=== PATIENT | male | born 1945 | race Caucasian/White ===

== ENCOUNTER 2017-02-02 05:03 | Inpatient (IN) ==
[~2017-02-02 05:03] MED LIST: FAMOTIDINE 20 MG TABLET PO ONE; LORazepam 1 MG TABLET PO ONE
[2017-02-02] MEDS ORDERED: VANCOMYCIN 1,000 MG VIAL ONE (05:51)
[2017-02-02] MEDS ORDERED: ceFAZolin 1,000 MG VIAL ONE (05:52)
[2017-02-02] MEDS ORDERED: SODIUM CHLORIDE 0.9% 100 ML IV ONE (05:52)
[2017-02-02] MEDS ORDERED: LORazepam 1 MG TABLET ONE (05:52)
[2017-02-02] MEDS ORDERED: FAMOTIDINE 20 MG TABLET ONE (05:52)
[2017-02-02] MEDS ORDERED: VANCOMYCIN INJ 1,000 MG in SODIUM CHLORIDE 0.9% 250 ML IV ONE (06:00)
[2017-02-02] MEDS ORDERED: TRANEXAMIC ACID 1,000 MG/10 ML VIAL IV ONE (06:43)
--- NOTE | 2017-02-02 06:48 | History and Physical Update ---
History and Physical Update - History and Physical H&P was reviewed, the patient examined and there: are no changes in the patients condition since last H&P was completed.
[2017-02-02] MEDS ORDERED: MORPHINE 10 MG/10 ML VIAL ONE (06:49)
[2017-02-02] MEDS ORDERED: PROPOFOL 200 MG/20 ML VIAL IV ONE (06:59)
[2017-02-02] MEDS ORDERED: PHENYLEPHRINE 1 MG/10 ML SYRINGE IV ONE (06:59)
[2017-02-02] MEDS ORDERED: ONDANSETRON 4 MG/2 ML VIAL ONE (06:59)
[2017-02-02] MEDS ORDERED: LACTATED RINGERS 1,000 ML IV SCH (07:00)
[2017-02-02] MEDS ORDERED: BACITRACIN OINT 0.9 GM PACK TOP ONE (08:17)
[2017-02-02] MEDS ORDERED: MAGNESIUM HYDROXIDE SUSP 30 ML UDCUP PO PRN (08:49)
[2017-02-02] MEDS ORDERED: diphenhydrAMINE CAP 25 MG CAPSULE PO PRN (08:49)
[2017-02-02] MEDS ORDERED: ONDANSETRON 4 MG/2 ML VIAL IV PRN (08:49)
[2017-02-02] MEDS ORDERED: DEXTROSE 50% 25 GM/50 ML VIAL IV PRN (08:49)
[2017-02-02] MEDS ORDERED: oxyCODONE IR 5 MG TABLET PO PRN ×2 (08:49)
[2017-02-02] MEDS ORDERED: ZALEPLON 5 MG CAPSULE PO PRN (08:49)
[2017-02-02] MEDS ORDERED: GLUCAGON 1 MG VIAL IM PRN (08:49)
[2017-02-02] MEDS ORDERED: MORPHINE 2 MG/1 ML SYRINGE IV PRN ×2 (08:49)
[2017-02-02 08:56] LABS: Apearance,Urine CLEAR (Clear); Bilirubin,Urine Negative (Negative); Blood, Urine Negative (Negative); Glucose,Urine (UA) Negative (Negative); Ketones,Urine Negative (Negative); Mucus,Urine Occasional /LPF (Occasional); Nitrite,Urine Negative (Negative); Protein,Urine Negative; RBC,Urine 2 /HPF (0-4); Urine Color Yellow (Yellow); Urine Specific Gravity 1.015 (1.001-1.035); Urine Urobilinogen < 2.0 EU/DL (0.2-1.0); WBC,Urine 1 /HPF (0-6)
--- NOTE | 2017-02-02 08:57 | Operative Note ---
Date of procedure: 02/02/17 Procedure: DIAGNOSIS: Right hip primary osteoarthritis PROCEDURE: Right total hip arthroplasty (CPT#54862) SURGEON: Alphonso ANESTHESIA: Spinal PROCEDURE and FINDINGS: After adequate anesthesia was induced, the patient was placed in lateral decubitus position. Left lower extremities prepped and draped in usual sterile fashion. Posteriolateral approach to the hip was made. Skin, subcutaneous tissue and deep fascia was incised longitudinally. Gluteus brennon muscle belly was split in line with its fibers. Piriformis, external rotators and capsule were taken down as a single layer as an inverted L shaped capsulotomy. Hip was dislocated. Templated femoral neck cut was made. Acetabulum was prepared by sequentially reaming to 53 mm. A 54 mm Continuum acetabular shell was press-fit with excellent stability. 1 6.5 millimeter screw was placed with an excellent bite. 32 mm elevated Longevity liner was placed with a dome hole plug. Femur was prepared sequentially with the box osteotome, canal finder and sequential broaches to 14. Components were trialed. A size 14 Versys fiber metal tapered stem was press-fit. During implantation of the stem, a small fracture line developed at the posteriomedial aspect of the femoral neck. A 1.8 mm cable was placed at the subtrochanteric level. A 32-3.5 mm head was placed. The component was stable posteriorly and anteriorly. Capsule and external rotators were repaired to the greater trochanter with #5 Tycron. Deep fascia was closed with 0 Vicryl figure-of- eight suture. Subcutaneous tissue was closed deep with a 2-0 Vicryl runner and superficially with 3-0 interrupted buried sutures. Skin was closed with natan. Bacitracin and a sterile occlusive dressing was applied. Surgeon / Physician: Chapin Werner Jr. Discharge Plan - Discharge Medications No Action metFORMIN [Glucophage] 850 mg PO BID W/MEALS Vitamin B Complex 1 each PO DAILY Omeprazole 20 mg PO DAILY Atorvastatin [Lipitor] 10 mg PO DAILY Aspirin [Ecotrin] 81 mg PO DAILY Glipizide [Glipizide Xl] 5 mg PO DAILY Fenofibrate 160 mg PO DAILY Clopidogrel [Plavix] 75 mg PO DAILY Magnesium Oxide 400 mg PO DAILY Metoprolol Succinate 25 mg PO BID - Follow Up or Referral - Forms/Instructions
[2017-02-02] MEDS ORDERED: ACETAMINOPHEN 1,000 MG/100 ML VIAL IV ONE (09:11)
[2017-02-02] MEDS ORDERED: KETAMINE 500 MG/10 ML VIAL ONE (09:11)
[2017-02-02] MEDS ORDERED: MIDAZOLAM 2 MG/2 ML VIAL ONE (09:11)
--- NOTE | 2017-02-02 09:30 | XRay Report ---
Right hip x-ray one view Indication: Joint replacement Comparison: None Technique: Single frontal view of the right hip Findings: Total right knee hip prosthesis noted. No evidence of immediate hardware failure. Scattered subcutaneous emphysema likely postoperative. Superficial skin natan noted. IMPRESSION: As above. PROCEDURE INTERPRETED AT [facility] DEPARTMENT OF RADIOLOGY Final Report Signed by: Dr Jake Abdi
--- NOTE | 2017-02-02 11:14 | Anesthesia ---
Anesthesia Post OP - Post Ansesthetic Evaluation Patient seen in post op: Yes Resp: within normal limits CV: within normal limits Mental: within normal limits Temp: within normal limits [id number]: within normal limits Nausea and Vomiting: within normal limits Pain: within normal limits
[2017-02-02] MEDS: KETOROLAC 30 MG/1 ML VIAL IV SCH ×3 (11:52→21:37)
[2017-02-02] MEDS: LACTATED RINGERS 1,000 ML IV SCH ×2 (12:35→21:35)
[2017-02-02] MEDS: ceFAZolin 2,000 MG in PREMIX 1 EACH IV SCH ×2 (13:06→21:39)
[2017-02-02] MEDS: MULTIVITAMIN (BEROCCA) TABLET PO SCH (14:56)
[2017-02-02] MEDS: METOPROLOL SUCCINATE XL 25 MG TABLET PO SCH ×2 (14:57→21:36)
[2017-02-02] MEDS: PANTOPRAZOLE 40 MG TABLET PO SCH (14:57)
[2017-02-02] MEDS: DOCUSATE SODIUM 100 MG CAPSULE PO SCH ×2 (14:57→21:37)
[2017-02-02] MEDS: MAGNESIUM OXIDE 400 MG TABLET PO SCH (14:57)
[2017-02-02] MEDS: ATORVASTATIN 20 MG TABLET PO SCH (14:57)
[2017-02-02] MEDS: FENOFIBRATE 160 MG TABLET PO SCH (14:58)
[2017-02-02] MEDS: INSULIN LISPRO 100 UNIT/ML SUBCUT SCH ×3 (14:59→21:37)
[2017-02-02] MEDS: ACETAMINOPHEN 500 MG TABLET PO SCH ×2 (15:01→18:15)
--- NOTE | 2017-02-02 15:30 | Pulmonology Progress Note ---
Pulmonary - PN: Subj Interval history: Patient is a 71-year-old white man that has a history of diabetes hypertension and heart disease. He has been stable but having considerable hip pain. He came in today and had a right total hip replacement. He said he did well with anesthesia is not having any trouble with shortness of breath. His vital signs have been stable and he is doing fairly well. He does have some soreness but the pain medicines helped a lot. He wants to start getting up out of bed. Overall he has done well. Exam (Progress Note) - Constitutional Vitals: Period Temp Pulse Resp BP Sys/Marc Pulse Ox Last 24 Hr 97.1 F-98.3 F 63-76 16-20 97-144/50-85 94-100 General appearance: normal weight, no acute distress - Head Head exam: Present: normal inspection, normocephalic - Eye Eye exam: Present: EOMI. Absent: scleral icterus Pupils: Present: ISABEL - ENT ENT exam: Present: normal exam - Neck Neck exam: Present: normal inspection. Absent: lymphadenopathy, thyromegaly - Respiratory Respiratory exam: Present: clear to auscultation bilaterally. Absent: wheezes - Cardiovascular Cardiovascular exam: Present: regular rate and rhythm. Absent: gallop, systolic murmur - GI/Abdominal GI/Abdominal exam: Present: normal bowel sounds, soft. Absent: distended, organomegaly, tenderness - Extremities Exam Extremities exam: Present: other (Right leg is splinted). Absent: calf tenderness, edema - Neurological Exam Neurological exam: Present: alert, oriented X3, CN II-XII intact - Psychiatric Psychiatric exam: Present: normal affect, normal mood - Skin Skin exam: Present: warm, dry Assessment and Plan (1) Status post right hip replacement Status: Acute Assessment and plan: The patient came in today and had a right hip replacement. He did well with anesthesia and is is feeling fairly well now. He has stable vital signs and no respiratory distress. Overall he is stable. Current Visit: Yes (2) Coronary artery disease Status: Acute Assessment and plan: His cardiac status is stable Current Visit: Yes (3) Hypertension Status: Acute Assessment and plan: His blood pressure is doing well. Current Visit: Yes (4) Diabetes Status: Acute Assessment and plan: His glucose is stable at 131 Current Visit: Yes
--- NOTE | 2017-02-02 17:24 | Orthopedic Progress Note ---
Orthopedics - Subjective Interval history: Comfortable. Sitting in a chair. Dressing clean, dry and intact. Right lower extremity is neurovascularly unchanged. Plan: Continue with postoperative orders. Exam - Constitutional Vitals: Period Temp Pulse Resp BP Sys/Marc Pulse Ox Last 24 Hr 97.1 F-98.3 F 63-76 16-20 97-144/50-85 94-100
[2017-02-03] MEDS: ACETAMINOPHEN 500 MG TABLET PO SCH ×2 (00:35→07:10)
[2017-02-03] MEDS: KETOROLAC 30 MG/1 ML VIAL IV SCH (03:22)
[2017-02-03] MEDS: FONDAPARINUX 2.5 MG/0.5 ML SYRINGE SUBCUT SCH (04:22)
[2017-02-03] MEDS: LACTATED RINGERS 1,000 ML IV SCH (06:09)
[2017-02-03 06:14] LABS: Basophils % 0.2 % (0.0-0.8); Eosinophils # 0.2 10*3/uL (0.0-0.87); Eosinophils % 2.5 % (0.00-10.9); Hematocrit 32.8 VOL% (42.0-52.0); Hemoglobin 10.6 GM/DL (14.0-18.0); Immature Granulocytes % 0.3 %; Immature Granulocytes Absolute 0.02 #; Lymphocytes # 0.9 10*3/uL (1.4-4.0); Lymphocytes % 14.9 % (21.2-54.2); Mean Corpuscular HGB Conc 32.3 GM/DL (32-36); Mean Corpuscular Hemoglobin 30 PG (27-34); Mean Corpuscular Volume 92.4 FL (87-102); Mean Platelet Volume 10.4 FL (9.6-12.0); Monocytes # 0.6 10*3/uL (0.11-0.8); Monocytes % 10.1 % (1.7-12.7); Neutrophils # 4.4 10*3/uL (1.4-7.4); Platelet Count 233 T/CUMM (130-400); Red Blood Count 3.55 MC/CUMM (3.8-5.5); Red Cell Distribution Width 13.3 % (9.3-17.3); White Blood Count 6.1 T/CUMM (4-12)
--- NOTE | 2017-02-03 06:29 | Orthopedic Progress Note ---
Orthopedics - Subjective Interval history: comfortable. has been mobilizing. dressing dry. nv ok mobilize. Probably home tomorrow. Exam - Constitutional Vitals: Period Temp Pulse Resp BP Sys/Marc Pulse Ox Last 24 Hr 97.1 F-100 F 63-104 16-20 97-128/50-88 94-100 Results - Labs CBC & BMP: 02/03/17 05:35
[2017-02-03 06:41] LABS: Elliptocytes Few; Hypochromasia 1+; Platelet Estimate Adequate
[2017-02-03 06:47] LABS: Calcium 8.3 MG/DL (8.5-10.1); Osmolality,Calculated 284.1 MOS/KG (273-304)
[2017-02-03] MEDS: INSULIN LISPRO 100 UNIT/ML SUBCUT SCH ×4 (08:07→20:13)
[2017-02-03] MEDS: ATORVASTATIN 20 MG TABLET PO SCH (09:06)
[2017-02-03] MEDS: DOCUSATE SODIUM 100 MG CAPSULE PO SCH ×2 (09:07→20:13)
[2017-02-03] MEDS: metFORMIN 850 MG TABLET PO SCH ×2 (09:07→17:12)
[2017-02-03] MEDS: FENOFIBRATE 160 MG TABLET PO SCH (09:07)
[2017-02-03] MEDS: PANTOPRAZOLE 40 MG TABLET PO SCH (09:07)
[2017-02-03] MEDS: METOPROLOL SUCCINATE XL 25 MG TABLET PO SCH ×2 (09:07→20:13)
[2017-02-03] MEDS: MULTIVITAMIN (BEROCCA) TABLET PO SCH (09:07)
[2017-02-03] MEDS: MAGNESIUM OXIDE 400 MG TABLET PO SCH (09:07)
--- NOTE | 2017-02-03 09:25 | Pulmonology Progress Note ---
Pulmonary - PN: Subj Interval history: Patient is a 71-year-old white man that has a history of diabetes hypertension and heart disease. He has been stable but having considerable hip pain. He came in today and had a right total hip replacement. He did well through the night and is feeling very well today. He is sitting up and moving around better. He says he is not too uncomfortable at all. He is hungry and not having any problems. Exam (Progress Note) - Constitutional Vitals: Period Temp Pulse Resp BP Sys/Marc Pulse Ox Last 24 Hr 97.1 F-100 F 67-104 16-86 100-142/50-88 94-96 Exam: General appearance: normal weight, no acute distress, he is sitting up and looks comfortable. - Head Head exam: Present: normal inspection, normocephalic - Eye Eye exam: Present: EOMI. Absent: scleral icterus Pupils: Present: ISABEL - ENT ENT exam: Present: normal exam - Neck Neck exam: Present: normal inspection. Absent: lymphadenopathy, thyromegaly - Respiratory Respiratory exam: Present: clear to auscultation bilaterally. Absent: wheezes - Cardiovascular Cardiovascular exam: Present: regular rate and rhythm. Absent: gallop, systolic murmur - GI/Abdominal GI/Abdominal exam: Present: normal bowel sounds, soft. Absent: distended, organomegaly, tenderness - Extremities Exam Extremities exam: Present: other (Right leg is splinted). Absent: calf tenderness, edema - Neurological Exam Neurological exam: Present: alert, oriented X3, CN II-XII intact - Psychiatric Psychiatric exam: Present: normal affect, normal mood - Skin Skin exam: Present: warm, dry Results - Labs CBC & BMP: 02/03/17 05:35 02/03/17 05:35 Assessment and Plan (1) Status post right hip replacement Status: Acute Assessment and plan: The patient had a right hip replacement yesterday and is doing very well postop. He is starting more physical therapy. Current Visit: Yes (2) Coronary artery disease Status: Acute Assessment and plan: His cardiac status is stable Current Visit: Yes (3) Hypertension Status: Acute Assessment and plan: His blood pressure is doing well. Current Visit: Yes (4) Diabetes Status: Acute Assessment and plan: His glucose is stable at 149 Current Visit: Yes
--- NOTE | 2017-02-03 11:20 | Pathology Report from [facility] ---
ACCESSION # : [id number] PATIENT NAME : Rebekah Lopez ORDERING DR : MARGARETH COUGHLIN MD CLINICAL HX: Right hip osteoarthritis POST-OP DX: Same SPECIMEN INFO: Right hip bone and tissue GROSS DESCRIPTION: The specimen is received in formalin labeled with the patient 's name Rebekah Lopez is a femoral head measuring 5.0 x 5.0 x 4.7 cm. The articular surface is focally degenerative with area of subchondral eburnation seen measuring 3.0 x 2.0 cm. The cut surface is smooth with some softening appreciated. Also received are multiple fragments of hemorrhagic bone and soft tissue measuring 4.0 x 4.0 cm in aggregate. Monogram Machine Operator tissue is submitted in one cassette following decalcification. DIAGNOSIS FOR REBEKAH LOPEZ: RIGHT HIP BONE AND TISSUE, TOTAL REPLACEMENT: Osteoarthritis. SERVICE DATE: 02/02/2017 REPORT DATE: 02/03/2017 PATHOLOGIST: Jenniffer Brunner [facility]
[2017-02-04] MEDS: FONDAPARINUX 2.5 MG/0.5 ML SYRINGE SUBCUT SCH (04:09)
[2017-02-04 05:24] LABS: Basophils % 0.4 % (0.0-0.8); Eosinophils # 0.1 10*3/uL (0.0-0.87); Eosinophils % 1.9 % (0.00-10.9); Hematocrit 29.4 VOL% (42.0-52.0); Hemoglobin 9.8 GM/DL (14.0-18.0); Immature Granulocytes % 0.6 %; Immature Granulocytes Absolute 0.04 #; Lymphocytes # 0.9 10*3/uL (1.4-4.0); Lymphocytes % 12.9 % (21.2-54.2); Mean Corpuscular HGB Conc 33.3 GM/DL (32-36); Mean Corpuscular Hemoglobin 30 PG (27-34); Mean Platelet Volume 10.8 FL (9.6-12.0); Monocytes # 0.8 10*3/uL (0.11-0.8); Monocytes % 11.3 % (1.7-12.7); Neutrophils # 5.2 10*3/uL (1.4-7.4); Neutrophils % 72.9 % (38.7-73.9); Platelet Count 208 T/CUMM (130-400); Red Blood Count 3.23 MC/CUMM (3.8-5.5); Red Cell Distribution Width 13.5 % (9.3-17.3); White Blood Count 7.2 T/CUMM (4-12)
--- NOTE | 2017-02-04 08:44 | Pulmonology Progress Note ---
Pulmonary - PN: Subj Interval history: Patient is a 71-year-old white man that has a history of diabetes hypertension and heart disease. He has been stable but having considerable hip pain. He came in today and had a right total hip replacement. He has done very well with physical therapy and is ambulating nicely. He is not having any new problems and says he feels like going home. Exam (Progress Note) - Constitutional Vitals: Period Temp Pulse Resp BP Sys/Marc Pulse Ox Last 24 Hr 96.7 F-101.3 F 91-103 18-20 115-159/67-77 92-99 Exam: General appearance: normal weight, no acute distress, he is sitting up and looks comfortable. - Head Head exam: Present: normal inspection, normocephalic - Eye Eye exam: Present: EOMI. Absent: scleral icterus Pupils: Present: ISABEL - ENT ENT exam: Present: normal exam - Neck Neck exam: Present: normal inspection. Absent: lymphadenopathy, thyromegaly - Respiratory Respiratory exam: Present: clear to auscultation bilaterally. Absent: wheezes - Cardiovascular Cardiovascular exam: Present: regular rate and rhythm. Absent: gallop, systolic murmur - GI/Abdominal GI/Abdominal exam: Present: normal bowel sounds, soft. Absent: distended, organomegaly, tenderness - Extremities Exam Extremities exam: Present: His right leg has not no increased swelling or tenderness. He is moving around better. - Neurological Exam Neurological exam: Present: alert, oriented X3, CN II-XII intact - Psychiatric Psychiatric exam: Present: normal affect, normal mood - Skin Skin exam: Present: warm, dry Results - Labs CBC & BMP: 02/04/17 03:52 02/03/17 05:35 Assessment and Plan (1) Status post right hip replacement Status: Acute Assessment and plan: The patient had a right hip replacement yesterday and is doing very well postop. He is starting more physical therapy. He looks like he is well enough to go home. Current Visit: Yes (2) Coronary artery disease Status: Acute Assessment and plan: His cardiac status is stable Current Visit: Yes (3) Hypertension Status: Acute Assessment and plan: His blood pressure is doing well. Overall he is medically stable Current Visit: Yes (4) Diabetes Status: Acute Assessment and plan: His glucose is stable at 155 Current Visit: Yes Specialty Discharge - Follow Up or Referrals Follow up with: Chapin Werner Jr., MD [Physician] -
[2017-02-04] MEDS: ATORVASTATIN 20 MG TABLET PO SCH (09:06)
[2017-02-04] MEDS: metFORMIN 850 MG TABLET PO SCH (09:06)
[2017-02-04] MEDS: DOCUSATE SODIUM 100 MG CAPSULE PO SCH (09:06)
[2017-02-04] MEDS: PANTOPRAZOLE 40 MG TABLET PO SCH (09:06)
[2017-02-04] MEDS: MAGNESIUM OXIDE 400 MG TABLET PO SCH (09:06)
[2017-02-04] MEDS: METOPROLOL SUCCINATE XL 25 MG TABLET PO SCH (09:07)
[2017-02-04] MEDS: FENOFIBRATE 160 MG TABLET PO SCH (09:07)
[2017-02-04] MEDS: MULTIVITAMIN (BEROCCA) TABLET PO SCH (09:07)
--- NOTE | 2017-02-04 09:36 | Discharge Summary ---
Hospital Course - Hospital Course Hospital Course: Mr. Casas was admitted after undergoing a right total hip arthroplasty. The patient received perioperative DVT and antimicrobial prophylaxis. Received physical therapy. He was discharged home postoperative day #2 in stable condition. Discharge instructions were reviewed with the patient. Dressing clean, dry and intact. Right lower extremity is neurovascularly intact. Specialty Discharge - Follow Up or Referrals Follow up with: Chapin Werner Jr., MD [Physician] - 03/04/17 12:20 pm Discharge Plan - Discharge Data Disposition: Home Health Service Discharge Diet: advance to your usual diet Hygiene: may shower Weight Bearing at Discharge: partial weight bearing (50%) Driving: not until seen by doctor - Discharge Medications Continue metFORMIN [Glucophage] 850 mg PO BID W/MEALS Vitamin B Complex 1 each PO DAILY Omeprazole 20 mg PO DAILY Atorvastatin [Lipitor] 10 mg PO DAILY Aspirin [Ecotrin] 81 mg PO DAILY Glipizide [Glipizide Xl] 5 mg PO DAILY Fenofibrate 160 mg PO DAILY Clopidogrel [Plavix] 75 mg PO DAILY Magnesium Oxide 400 mg PO DAILY Metoprolol Succinate 25 mg PO BID - Follow Up or Referral Follow Up: Chapin Werner Jr., MD [Physician] - 03/04/17 12:20 pm - Forms/Instructions Instructions: Total Hip Replacement (DC) Additional Discharge Instructions: Posterior hip precautions for 3 months. Daily dry dressing changes. Arrange for walker and bedside commode for home use. Wear ANGIE hose for 1 month. Follow-up appointment in 4 weeks. Discontinue natan and Steri-Strip wound on February 14, 2017. Prescription for Sanborn 7.5 with 30 tablets was written. Restart Plavix Tuesday. Exam - Constitutional Vitals: Period Temp Pulse Resp BP Sys/Marc Pulse Ox Last 24 Hr 96.7 F-101.3 F 91-103 18-20 115-159/67-77 92-99 Discharge Results Procedures and tests throughout hospitalization: Pending Orders 02/05/17 04:00 Comp Blood Count Auto Diff IN AM Labs on day of discharge: Labs from last 24 hours 02/04/17 02/04/17 02/03/17 06:51 03:52 19:57 WBC 7.2 RBC 3.23 L Hgb 9.8 L Hct 29.4 L MCV 91.0 MCH 30 MCHC 33.3 RDW 13.5 Plt Count 208 MPV 10.8 Neut % (Auto) 72.9 Lymph % (Auto) 12.9 L [place] % (Auto) 11.3 Eos % (Auto) 1.9 Baso % (Auto) 0.4 Neut # (Auto) 5.2 Lymph # (Auto) 0.9 L [place] # (Auto) 0.8 Eos # (Auto) 0.1 Baso # (Auto) 0.0 Immature Gran % 0.6 Nucleated RBC % 0.0 Immature Gran # 0.04 Nucleated RBCs # 0.00 POC Glucose 155 H 194 H 02/03/17 02/03/17 15:41 11:13 WBC RBC Hgb Hct MCV MCH MCHC RDW Plt Count MPV Neut % (Auto) Lymph % (Auto) [place] % (Auto) Eos % (Auto) Baso % (Auto) Neut # (Auto) Lymph # (Auto) [place] # (Auto) Eos # (Auto) Baso # (Auto) Immature Gran % Nucleated RBC % Immature Gran # Nucleated RBCs # POC Glucose 221 H 254 H DS: Provider Date of admission: 02/02/17 05:03 Primary care physician: Darlene Weller NP Attending physician on admission: Chapin Werner Jr., Consults: 02/02/17 08:50 Consult to Case Mgmt/Social Srvs [CONS] Routine Reason for Case Mgmt/Social Srvs: Rehab Home Health Equipment Consult Comment: Bedside Commode, Del Room 321; D/C tomorrow; Pt 5ft 6in 189lbs Consult to Occupational Therapy [CONS] Routine Reason for Occupational Therapy: Evaluate and Treat Consult Comment: ADL's Consult to Physical Therapy [CONS] Routine Reason for Physical Therapy: Evaluate and Treat Gait Training Start Therapy: Today Consult Comment: 50% pwb, posterior hip precautions 02/02/17 09:54 Consult to Pharmacy [CONS] Routine Reason for Pharmacy Consult: Adjust Meds Renal Funct 02/02/17 10:08 Consult to Physician [CONS] Routine Comment: Consulting Provider: Dhaval Ortiz Consulting Provider Notified: Yes When should Consulting Provider be notified: Now Person Notified: manfred [email or web address] Date Notified: 02/02/17 Time Notified: 10:16 Discharging clinician: Chapin Werner Jr., Expected date of discharge: 02/04/17
[2017-02-04 11:48] VITALS: BP 129/72
== END 2017-02-04 12:00 | disposition home health service (06) | DRG 470 ==
LOC: N.SDSINP 05:03 → N.3E 09:40
PROVIDERS: ADMIT Orthopaedic Surgery; ATTEND Orthopaedic Surgery

== ENCOUNTER 2019-07-24 05:07 | Inpatient (IN) ==
[2019-07-24] MEDS ORDERED: VANCOMYCIN 1,000 MG VIAL ONE (05:55)
[2019-07-24] MEDS ORDERED: ceFAZolin 1,000 MG VIAL ONE (05:55)
[2019-07-24] MEDS ORDERED: VANCOMYCIN INJ 1,000 MG in SODIUM CHLORIDE 0.9% 250 ML IV ONE (06:00)
[2019-07-24] MEDS ORDERED: ceFAZolin 1,000 MG in SYRINGE 1 EACH IV ONE (06:00)
[2019-07-24] MEDS ORDERED: ROPIVACAINE 0.5% 30 ML VIAL ONE (06:16)
[2019-07-24] MEDS ORDERED: BUPIVACAINE SPINAL 0.75% 2 ML AMP SPINAL ONE (06:16)
[2019-07-24] MEDS ORDERED: DEXAMETHASONE 4 MG/1 ML VIAL ONE (06:16)
[2019-07-24] MEDS ORDERED: LACTATED RINGERS 1,000 ML IV SCH (06:30)
[2019-07-24] MEDS ORDERED: TRANEXAMIC ACID 1,000 MG/10 ML VIAL ONE (06:30)
[2019-07-24] MEDS ORDERED: DEXTROSE 50% 25 GM/50 ML VIAL IV PRN (08:46)
[2019-07-24] MEDS ORDERED: GLUCAGON 1 MG VIAL IM PRN (08:46)
[2019-07-24] MEDS ORDERED: oxyCODONE IR 5 MG TABLET PO PRN ×2 (08:47)
[2019-07-24] MEDS ORDERED: MAGNESIUM HYDROXIDE SUSP 30 ML UDCUP PO PRN (08:47)
[2019-07-24] MEDS ORDERED: ZALEPLON 5 MG CAPSULE PO PRN (08:47)
[2019-07-24] MEDS ORDERED: ONDANSETRON 4 MG/2 ML VIAL IV PRN (08:47)
[2019-07-24] MEDS ORDERED: diphenhydrAMINE CAP 25 MG CAPSULE PO PRN (08:47)
[2019-07-24] MEDS ORDERED: MORPHINE 4 MG/1 ML VIAL IV PRN ×2 (08:47)
[2019-07-24] MEDS ORDERED: PROPOFOL 200 MG/20 ML VIAL IV ONE (08:55)
[2019-07-24] MEDS ORDERED: PHENYLEPHRINE DRIP 20 MG/250 ML PREMIX IV ONE (08:55)
[2019-07-24] MEDS ORDERED: fentaNYL 100 MCG/2 ML VIAL ONE (08:56)
[2019-07-24] MEDS ORDERED: MIDAZOLAM 2 MG/2 ML VIAL ONE (08:56)
[2019-07-24] MEDS ORDERED: SODIUM CHLORIDE 0.9% 200 ML IV ONE (08:56)
[2019-07-24 08:57] LABS: Apearance,Urine CLEAR (Clear); Bilirubin,Urine Negative (Negative); Blood, Urine Negative (Negative); Glucose,Urine (UA) Negative (Negative); Ketones,Urine Negative (Negative); Mucus,Urine Occasional /LPF (Occasional); Nitrite,Urine Negative (Negative); Protein,Urine Negative; RBC,Urine 1 /HPF (0-4); Urine Color Yellow (Yellow); Urine Specific Gravity 1.018 (1.001-1.035); Urine Urobilinogen < 2.0 EU/DL (0.2-1.0); WBC,Urine <1 /HPF (0-6)
[2019-07-24] MEDS: LACTATED RINGERS 1,000 ML IV SCH ×2 (11:16→20:13)
[2019-07-24] MEDS: DOCUSATE SODIUM 100 MG CAPSULE PO SCH ×2 (11:16→20:18)
[2019-07-24] MEDS: ATORVASTATIN 20 MG TABLET PO SCH (11:16)
[2019-07-24] MEDS: MAGNESIUM OXIDE 400 MG TABLET PO SCH (11:17)
[2019-07-24] MEDS: KETOROLAC 30 MG/1 ML VIAL IV SCH ×3 (11:17→21:57)
[2019-07-24] MEDS: INSULIN LISPRO 100 UNIT/ML SUBCUT SCH ×3 (12:49→21:57)
[2019-07-24] MEDS: ceFAZolin 2,000 MG in PREMIX 1 EACH IV SCH ×2 (12:59→20:07)
[2019-07-24] MEDS: ACETAMINOPHEN 500 MG TABLET PO SCH ×3 (13:15→23:47)
[2019-07-24] MEDS: metFORMIN 850 MG TABLET PO SCH (17:33)
[2019-07-25] MEDS: LACTATED RINGERS 1,000 ML IV SCH ×2 (03:25→11:14)
[2019-07-25] MEDS: KETOROLAC 30 MG/1 ML VIAL IV SCH (03:25)
[2019-07-25 05:40] LABS: Basophils % 0.3 % (0.0-0.8); Eosinophils # 0.2 10*3/uL (0.0-0.87); Eosinophils % 2.6 % (0.00-10.9); Hematocrit 31.2 VOL% (42.0-52.0); Hemoglobin 10.1 GM/DL (14.0-18.0); Immature Granulocytes % 0.2 %; Immature Granulocytes Absolute 0.01 #; Lymphocytes # 0.8 10*3/uL (1.4-4.0); Lymphocytes % 14.2 % (21.2-54.2); Mean Corpuscular HGB Conc 32.4 GM/DL (32-36); Mean Platelet Volume 10.4 FL (9.6-12.0); Monocytes % 11.6 % (1.7-12.7); Neutrophils % 71.1 % (38.7-73.9); Platelet Count 206 T/CUMM (130-400); Red Blood Count 3.39 MC/CUMM (3.8-5.5); Red Cell Distribution Width 13.5 % (9.3-17.3); White Blood Count 5.9 T/CUMM (4-12)
[2019-07-25 05:53] LABS: Calcium 8.3 MG/DL (8.5-10.1); Osmolality,Calculated 279.5 MOS/KG (273-304)
[2019-07-25] MEDS: ACETAMINOPHEN 500 MG TABLET PO SCH (06:10)
[2019-07-25] MEDS ORDERED: CLOPIDOGREL 75 MG TABLET PO SCH (09:00)
[2019-07-25] MEDS ORDERED: FENOFIBRATE 160 MG TABLET PO SCH (09:00)
[2019-07-25] MEDS: INSULIN LISPRO 100 UNIT/ML SUBCUT SCH ×2 (09:00→13:48)
[2019-07-25] MEDS ORDERED: ASPIRIN EC 81 MG TABLET PO SCH (09:00)
[2019-07-25] MEDS ORDERED: METOPROLOL SUCCINATE XL 25 MG TABLET PO SCH (11:13)
[2019-07-25] MEDS: DOCUSATE SODIUM 100 MG CAPSULE PO SCH (11:20)
[2019-07-25] MEDS: ATORVASTATIN 20 MG TABLET PO SCH (11:21)
[2019-07-25] MEDS: MAGNESIUM OXIDE 400 MG TABLET PO SCH (11:21)
[2019-07-25] MEDS: metFORMIN 850 MG TABLET PO SCH (11:23)
[2019-07-25 12:11] VITALS: BP 142/61
[2019-07-25] MEDS ORDERED: CELECOXIB 200 MG CAPSULE PO SCH (14:47)
[2019-07-29] MEDS ORDERED: ERGOCALCIFEROL 50,000 UNIT CAPSULE PO SCH (08:45)
== END 2019-07-25 16:05 | disposition home health service (06) | DRG 470 ==
LOC: N.SDSINP 05:07 → N.3E 09:21
PROVIDERS: ADMIT Orthopaedic Surgery; ATTEND Orthopaedic Surgery